=== PATIENT | male | born 1955 | race Caucasian/White ===

== ENCOUNTER → 2016-03-18 | Outpatient (CLI) | payer BC ==
[~2016-03-18] MED LIST: ASPIRIN 81MG TA81 MG PO; BISOPROLOL FUMA1 TA4 PO; PANTOPRAZOLE SO40 M1 PO
[2016-03-18 18:26] LABS: BUN 20 mg/dL (7-18)
[2016-03-18 18:27] LABS: GFR (ESTIMATED) 57 ML/MIN (>60)
== END ==
LOC: LAB 17:22
PROVIDERS: Internal Medicine
DX: I10 Essential (primary) hypertension (principal); I48.0 Paroxysmal atrial fibrillation

== ENCOUNTER → 2017-01-04 | Outpatient (CLI) | payer BC ==
[2017-01-04 09:15] LABS: HEMOGLOBIN 15.5 g/dL (14.1-18.0); LYMPH % 17.9 % (10-50)
[2017-01-04 10:08] LABS: BUN 19 mg/dL (7-18)
[2017-01-04 10:12] LABS: GFR (ESTIMATED) 69 ML/MIN (>60)
== END ==
LOC: LAB 08:36
PROVIDERS: Internal Medicine Adolescent Medicine
DX: E78.5 Hyperlipidemia, unspecified (principal); Z86.79 Personal history of other diseases of the circulatory system